=== PATIENT | female | born 1960 | race Caucasian/White ===

== ENCOUNTER 2020-04-18 09:43 | Outpatient (CLI) | payer OTHER, SELFPAY ==
--- NOTE | ~2020-04-18 | XR_ITS ---
EXAMINATION: XR abdomen/kub 1V INDICATION: Left-sided urolithiasis TECHNIQUE: Supine view of the abdomen is obtained. COMPARISON: None FINDINGS: There is linear calcific density projecting in the expected location of the proximal left u reter. Calcification projecting at the left kidney lower pole could reflect bowel contents. A right p elvic phlebolith is noted. A moderate volume of colonic stool is present. 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 IMPRESSION: 1. 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 2. Stone versus bowel content projecting over the left kidney lower pole. Reviewed, dictated and finalized at location A. MENDER
== END 2020-04-18 09:44 | disposition home or self-care (01) ==
LOC: ANHIMG 09:55
PROVIDERS: PCP Family Medicine; Visit Provider Urology
DX: N20.0 Calculus of kidney (principal)
CPT/HCPCS: 74018